=== PATIENT | male | born 1975 | race Two or more races ===

== ENCOUNTER 2021-04-20 19:53 | Inpatient (IN) | payer OTHER ==
[~2021-04-20] VITALS: Ht 162.6 cm; Wt 80.3 kg
--- NOTE | 2021-04-20 20:20 | NUR ---
PT BIBRA C/O WEAKNESS, DIARRHEA, AND MISSING DIALYSIS X1WEEK. PT AAOX4 BREATHING EVENLY AND UNLABORED. PT ATTACHED TO MONITOR AND POX. MD AT BEDSIDE. PT HAS LT UPPER EXTREMITY AV FISTUALA AND RT CHEST PORT. PT AMBULATORY, SKIN WARM AND DRY. PT GIVEN BLANKET AND CALL LIGHT WTIH REACH.
--- NOTE | 2021-04-20 20:34 | NUR ---
BLOOD SENT TO LAB
[2021-04-20 20:43] LABS: BASOPHILS % (AUTO) 0.5 % (0.0-2.0); EOSINOPHILS % (AUTO) 0.3 % (0.0-6.0); HEMATOCRIT 30 % (39-51); HEMOGLOBIN 9.8 g/dL (13.5-17.5); LYMPHOCYTES # (AUTO) 0.7 K/uL (0.8-4.8); MEAN CORPUSCULAR HGB CONC 33 g/dl (31.0-36.0); MEAN CORPUSCULAR VOLUME 94 fL (80-96); MONOCYTES # (AUTO) 0.5 K/uL (0.1-1.30); MONOCYTES % (AUTO) 7.8 % (2.0-12.0); NEUTROPHILS # (AUTO) 4.8 K/uL (1.8-8.9); NEUTROPHILS % (AUTO) 80.4 % (43.0-81.0); PLATELET COUNT (AUTO) 159 K/uL (150-450); RED BLOOD CELL COUNT(AUTO) 3.14 MIL/uL (4.5-6.0)
--- NOTE | 2021-04-20 20:51 | NUR ---
MRSA SWAB COLLECTED AND SENT TO LAB. PATIENT'S BELONGINGS LIST DONE.
[2021-04-20 20:54] LABS: CALCIUM, SERUM 6.3 mg/dL (8.5-10.1); CARBON DIOXIDE 34 mmol/L (21-32); CHLORIDE 90 mmol/L (98-107); GLUCOSE 191 mg/dL (74-106); SODIUM SERUM 133 mmol/L (136-145); UREA NITROGEN, BLOOD 66 mg/dL (7-18)
[2021-04-20 20:56] LABS: CREATININE 10.6 mg/dL (0.6-1.3); POTASSIUM 5.9 mmol/L (3.5-5.1)
--- NOTE | 2021-04-20 20:58 | NUR ---
COVID SWAB SENT TO LAB
[2021-04-20 21:00] LABS: ALANINE AMINOTRANSFERASE 25 U/L (12-78); ALBUMIN 3.2 g/dL (3.4-5.0); ALKALINE PHOSPHATASE 144 U/L (46-116); ASPARTATE AMINOTRANSFERASE 29 U/L (15-37); BILIRUBIN,DIRECT 0.4 mg/dL (0.0-0.2); BILIRUBIN,TOTAL 0.9 mg/dL (0.2-1.0); TOTAL PROTEIN, SERUM 9.4 g/dL (6.4-8.2)
[2021-04-20] MEDS ORDERED: SODIUM POLYSTYRENE SULFONATE 15 G/60 ML BOTTLE PO ONE (21:00)
[2021-04-20] MEDS ORDERED: DEXTROSE 50%-WATER 50 ML DISP.SYRIN IV ONE (21:00)
[2021-04-20] MEDS ORDERED: INSULIN REGULAR, HUMAN 100 UNIT/ML 10 ML VIAL IV ONE (21:00)
[2021-04-20] MEDS ORDERED: ALBUTEROL FS 2.5 MG/3 ML VIAL.NEB NEB ONE (21:00)
--- NOTE | 2021-04-20 21:43 | NUR ---
TELE 304-1
[2021-04-20] MEDS ORDERED: ZOLPIDEM TARTRATE 5 MG TABLET PO PRN (22:00)
[2021-04-20] MEDS ORDERED: Z GUARD REMEDY 2 OZ OINT TP PRN (22:00)
[2021-04-20] MEDS ORDERED: ONDANSETRON HCL/PF 4 MG/2 ML VIAL IVP PRN (22:00)
[2021-04-20] MEDS ORDERED: DEXTROSE 50%-WATER 50 ML DISP.SYRIN IV PRN (22:00)
[2021-04-20] MEDS ORDERED: MAG HYDROX/AL HYDROX/SIMETH 30 ML UDC PO PRN (22:00)
[2021-04-20] MEDS ORDERED: MAGNESIUM HYDROXIDE 30 ML UDC PO PRN (22:00)
[2021-04-20] MEDS ORDERED: ACETAMINOPHEN 325 MG TABLET PO PRN (22:00)
--- NOTE | 2021-04-20 22:09 | NUR ---
report given to MARILEE Mckinnon for arsenio
[2021-04-20 22:30] VITALS: BP 157/91
--- NOTE | 2021-04-20 22:30 | NUR ---
LEAK PATCHER OPENING NOTES: RECEIVED PATIENT FROM ER VIA RBRONX ON STABLE CONDITION,NO COMPLAIN OF PAIN AND DISCOMFORT AT THIS TIME, PATIENT IS A/O X4 GENERALLY TURKMEN SPEAKING BUT UNDERSTAND MONGOLIAN, AMBULATORY ABLE TO TRANSFER FROM BED TO REST ROOM , REMIND PATIENT TO USE CALL LIGHTS FOR ASSISTANCE, PT WAS ORIENTED TO PLACE, PATIENT ON TELE MONITORING SR-76, ON RA SATURATING WELL AT 96 PERCENT. WITH STANDBY O2 DUE TO COMPLAIN OF DYSPNEA NO SOB WAS OBSERVED SKIN ASSESSMENT DONE PICTURE FOR REFERENCE BUT PATIENT REFUSED, INVENTORY DONE, WITH IV LINE AT RAC#20 AND A/V FISTULA AT RT CHEST WALL, DIALYSIS DAY MWF, PATIENT KEPT CLEAN AND DRY ALL NEEDS MET, WILL CONTINUE TO MONITOR,
[2021-04-21] VITALS: BP 163/90
[2021-04-21] MEDS: BLOOD SUGAR DIAGNOSTIC 1 EACH STRIP VI SCH ×5 (00:31→22:12)
--- NOTE | 2021-04-21 02:50 | NUR ---
RN NOTES: DURING ASESSMENT PATIENT WAS ASKED IF HE HAS ALLERGY ND REPLIED HE HAS ALLERGY TO PENICILLIN DOCUMENTED
[2021-04-21 04:17] VITALS: BP 166/95
[2021-04-21 05:52] LABS: BASOPHILS % (AUTO) 0.3 % (0.0-2.0); HEMATOCRIT 30 % (39-51); HEMOGLOBIN 9.8 g/dL (13.5-17.5); LYMPHOCYTES # (AUTO) 0.7 K/uL (0.8-4.8); LYMPHOCYTES % (AUTO) 12.7 % (20.0-44.0); MEAN CORPUSCULAR HGB CONC 33 g/dl (31.0-36.0); MEAN CORPUSCULAR VOLUME 95 fL (80-96); MONOCYTES # (AUTO) 0.5 K/uL (0.1-1.30); MONOCYTES % (AUTO) 9.8 % (2.0-12.0); NEUTROPHILS # (AUTO) 4.1 K/uL (1.8-8.9); NEUTROPHILS % (AUTO) 77.2 % (43.0-81.0); PLATELET COUNT (AUTO) 105 K/uL (150-450); RED BLOOD CELL COUNT(AUTO) 3.11 MIL/uL (4.5-6.0); WHITE BLOOD COUNT (AUTO) 5.3 K/uL (4.3-11.0)
[2021-04-21 06:33] LABS: CALCIUM, SERUM 6.4 mg/dL (8.5-10.1); MAGNESIUM 2.2 mg/dL (1.8-2.4); POTASSIUM 4.5 mmol/L (3.5-5.1)
[2021-04-21 06:46] LABS: CREATININE 11.3 mg/dL (0.6-1.3); PHOSPHORUS 8.5 mg/dL (2.5-4.9)
--- NOTE | 2021-04-21 07:15 | NUR ---
RN NOTES RECEIVED CRITICAL LABS FOR PATIENT PHOSPHORUS -8.5 AND CREATININE 11.[address] EMPERATRIZ MOSELEY AND ORDER PHOSLO 667 MG TID AND WILL NEED HD TODAY. NOTED AND CARRY OUT ENDORSE TO INCOMING NURSE
--- NOTE | 2021-04-21 07:25 | NUR ---
RN NOTES RECEIVED PATIENT IN BED, A/O X4, VERBALLY RESPONSIVE, CYMRAES SPEAKING, NOT IN ACUTE DISTRESS NOTED. A/V SHUNT ON RIGHT CHEST WALL INTACT, WITH RAC #20G SALINE LOCK. AMBULATORY WITH BRP. WILL CONTINUE TO MONITOR.
[2021-04-21] MEDS: *INSULIN REGULAR(HUMULIN R)HUM 100 UNIT/ML VIAL SQ PRN ×2 (07:36→22:10)
--- NOTE | 2021-04-21 07:47 | NUR ---
MS RN NOTES: RECEIVED PATIENT AWAKE IN BED ,BED IN LOW POSITION, CALL LIGHTS WITHIN REACH,NO COMPLAIN OF PAIN AND DISCOMFORT AT THIS TIME, PATIENT IS A/O VIETNAMESE SPEAKING AMBULATE TO BATHROOM NO ON RA SATURATING WELL, PATIENT KEPT CLEAN AND DRY ALL NEEDS MET, ENDORSE TO INCOMING SHIFT.
[2021-04-21] MEDS ORDERED: ALBU8.5H8 IH (07:49)
[2021-04-21] MEDS ORDERED: PANT40TA2 PO (07:50)
[2021-04-21] MEDS ORDERED: TRAZ-182 PO (07:50)
[2021-04-21] MEDS ORDERED: IBUP-1953 PO (07:50)
[2021-04-21] MEDS ORDERED: DIVA250T4 PO (07:50)
[2021-04-21] MEDS ORDERED: MAGN400O6 PO (07:50)
[2021-04-21] MEDS ORDERED: CHOL100062 PO (07:50)
[2021-04-21] MEDS ORDERED: ASPI-1169 PO (07:50)
[2021-04-21] MEDS ORDERED: SIMV10TA98 PO (07:50)
[2021-04-21] MEDS ORDERED: NA P133E RC (07:50)
[2021-04-21] MEDS ORDERED: BISA10SU11 RC (07:50)
[2021-04-21] MEDS ORDERED: RISP0.2515 PO (07:50)
[2021-04-21] MEDS ORDERED: DOCU-141 PO (07:50)
[2021-04-21] MEDS ORDERED: ONDA4TAB5 PO (07:50)
[2021-04-21] MEDS ORDERED: METO25TA20 PO (07:50)
[2021-04-21] MEDS ORDERED: DIVA500T2 PO (07:50)
[2021-04-21] MEDS ORDERED: METH750T3 PO (07:50)
[2021-04-21] MEDS ORDERED: CRAN425C6 PO (07:50)
[2021-04-21 08:00] VITALS: BP 165/100
[2021-04-21] MEDS ORDERED: [UNRECOGNIZED DRUG - REMARK] PO (08:22)
[2021-04-21] MEDS ORDERED: AMLO-213 PO (08:22)
[2021-04-21] MEDS ORDERED: SUCR500T PO (08:22)
[2021-04-21] MEDS ORDERED: LABE200T5 PO (08:22)
--- NOTE | 2021-04-21 09:00 | NUR ---
RN NOTES PATIENT SEEN BY DR. REDD TODAY.
[2021-04-21] MEDS: AMLODIPINE BESYLATE 10 MG TABLET PO SCH (09:04)
[2021-04-21] MEDS: CALCIUM ACETATE 667 MG CAP/TAB PO SCH ×3 (09:04→17:06)
[2021-04-21] MEDS: LABETALOL HCL (100MG) 100 MG TABLET PO SCH ×2 (09:05→17:09)
[2021-04-21] MEDS: INSULIN REGULAR, HUMAN 100 UNIT/ML 3 ML VIAL SQ PRN (11:54)
--- NOTE | 2021-04-21 11:58 | NUR ---
RN NOTES SPOKE W/ JOEY, DIALYSIS NURSE; PER JOEY, WILL DIALYZE PATIENT LATER IN THE AFTERNOON.
[2021-04-21 12:00] VITALS: BP 138/81
--- NOTE | 2021-04-21 12:22 | NUR ---
RN NOTES PATIENT SIGNED CONSENT FORM FOR HEMODIALYSIS; FORM PLACED IN PATIENT'S CHART.
[2021-04-21] MEDS ORDERED: CALC667C6 PO (12:32)
[2021-04-21] MEDS ORDERED: BUME2TAB7 PO (12:32)
[2021-04-21] MEDS ORDERED: SEVE800T8 PO (12:32)
--- NOTE | 2021-04-21 14:11 | NUR ---
RN NOTES JOEY, HD NURSE, CURRENTLY AT BEDSIDE FOR HD.
[2021-04-21 16:00] VITALS: BP 157/95
--- NOTE | 2021-04-21 18:43 | NUR ---
RN NOTES PATIENT S/P HEMODIALYSIS TODAY, 4L OUTPUT NOTED. AT BEDSIDE SITTING DOWN, NOT IN ACUTE DISTRESS, WATCHING TV. BREATHING EVEN AND UNLABORED, TOLERATING ROOM AIR. NO COMPLAINT OF PAIN. HD ACCESS SITE W/ DRESSING C/D/I. DUE MEDS GIVEN TODAY. PATIENT IS AMBULATORY W/ STEADY GAIT. SEEN TODAY W/ DR. DEMPSEY AND AWARE OF HD. SAFETY MEASURES MAINTAINED. WILL ENDORSE TO SECURITY DISPATCHER RN FOR THEO.
--- NOTE | 2021-04-21 19:10 | NUR ---
MS RN OPENING NOTES: RECEIVED PATIENT IN BED, ASLEEP, EASILY AROUSABLE. NO S/S OF DISTRESS NOTED. NO COMPLAIN OF PAIN. CALL LIGHT WITHIN REACH. BED IN LOWEST AND LOCKED POSITION. WITH LEFT ARM AV SHUNT, WITH BRUIT, SIGN FOR NO BP, AND NO BLOOD DRAW ON THE LEFT ARM PLACED ON THE WALL.
[2021-04-21 20:00] VITALS: BP 128/76
[2021-04-22 06:47] LABS: BASOPHILS # (AUTO) 0.1 K/uL (0.0-0.2); BASOPHILS % (AUTO) 1.2 % (0.0-2.0); EOSINOPHILS % (AUTO) 1.6 % (0.0-6.0); HEMATOCRIT 30 % (39-51); LYMPHOCYTES # (AUTO) 0.9 K/uL (0.8-4.8); LYMPHOCYTES % (AUTO) 18.7 % (20.0-44.0); MEAN CORPUSCULAR HGB CONC 33 g/dl (31.0-36.0); MEAN CORPUSCULAR VOLUME 95 fL (80-96); MONOCYTES # (AUTO) 0.6 K/uL (0.1-1.30); MONOCYTES % (AUTO) 13.3 % (2.0-12.0); NEUTROPHILS # (AUTO) 3.1 K/uL (1.8-8.9); NEUTROPHILS % (AUTO) 65.2 % (43.0-81.0); RED BLOOD CELL COUNT(AUTO) 3.18 MIL/uL (4.5-6.0); WHITE BLOOD COUNT (AUTO) 4.7 K/uL (4.3-11.0)
[2021-04-22] MEDS: BLOOD SUGAR DIAGNOSTIC 1 EACH STRIP VI SCH ×4 (06:53→22:00)
--- NOTE | 2021-04-22 06:53 | NUR ---
BLOOD YOKCD=[id number], NO INSULIN COVERAGE NEEDED.
[2021-04-22 07:30] LABS: CALCIUM, SERUM 7.7 mg/dL (8.5-10.1); MAGNESIUM 2.2 mg/dL (1.8-2.4); PHOSPHORUS 7.4 mg/dL (2.5-4.9); POTASSIUM 4.3 mmol/L (3.5-5.1)
[2021-04-22 07:31] LABS: CREATININE 8.1 mg/dL (0.6-1.3)
[2021-04-22 08:00] VITALS: BP 132/74
--- NOTE | 2021-04-22 08:00 | NUR ---
RECEIVED PT. IN AM,ALERT AND ORIENTED X4,COMPLIANT WITH MEDS.
[2021-04-22] MEDS: LABETALOL HCL (100MG) 100 MG TABLET PO SCH ×2 (09:48→17:00)
[2021-04-22] MEDS: AMLODIPINE BESYLATE 10 MG TABLET PO SCH (09:48)
[2021-04-22] MEDS: CALCIUM ACETATE 667 MG CAP/TAB PO SCH ×3 (09:48→18:25)
[2021-04-22 10:18] LABS: EOSINOPHILS % (MANUAL) 1 % (0-4); LYMPHOCYTES % (MANUAL) 22 % (16-48); MONOCYTES % (MANUAL) 10 % (0-11.0); NEUTROPHILS % (MANUAL) 67 (42-76)
[2021-04-22 11:26] LABS: PLATELET COUNT (AUTO) 158 K/uL (150-450)
[2021-04-22] MEDS: *INSULIN REGULAR(HUMULIN R)HUM 100 UNIT/ML VIAL SQ PRN ×2 (13:41→18:29)
[2021-04-22 16:00] VITALS: BP 109/63
--- NOTE | 2021-04-22 16:43 | NUR ---
NO COMPLAINTS OFFERED.
--- NOTE | 2021-04-22 19:05 | NUR ---
MS RN OPENING NOTES: RECEIVED PATIENT SITTING IN THE CHAIR, A/O X4. NO S/S OF DISTRESS NOTED. CALL LIGHT WITHIN REACH. BED IN LOWEST AND LOCKED POSITION. NO COMPLAIN OF PAIN.
[2021-04-22 19:58] VITALS: BP 128/67
--- NOTE | 2021-04-22 22:22 | NUR ---
BLOOD SUGAR-[id number], NO INSULIN COVERAGE NEEDED.
--- NOTE | 2021-04-23 05:51 | NUR ---
MS RN CLOSING NOTES: PATIENT RESTING IN BED, AWAKE, A/O X4. NO S/S OF DISTRESS NOTED. CALL LIGHT WITHIN REACH. BED IN LOWEST AND LOCKED POSITION. HD STARTED.
[2021-04-23 06:19] LABS: BASOPHILS % (AUTO) 0.7 % (0.0-2.0); EOSINOPHILS % (AUTO) 2.7 % (0.0-6.0); HEMATOCRIT 29 % (39-51); HEMOGLOBIN 9.5 g/dL (13.5-17.5); LYMPHOCYTES % (AUTO) 19.7 % (20.0-44.0); MEAN CORPUSCULAR HGB CONC 33 g/dl (31.0-36.0); MEAN CORPUSCULAR VOLUME 96 fL (80-96); MONOCYTES # (AUTO) 0.7 K/uL (0.1-1.30); MONOCYTES % (AUTO) 14.5 % (2.0-12.0); NEUTROPHILS # (AUTO) 3.1 K/uL (1.8-8.9); NEUTROPHILS % (AUTO) 62.4 % (43.0-81.0); RED BLOOD CELL COUNT(AUTO) 3.02 MIL/uL (4.5-6.0)
[2021-04-23] MEDS: BLOOD SUGAR DIAGNOSTIC 1 EACH STRIP VI SCH ×3 (06:44→17:23)
--- NOTE | 2021-04-23 06:44 | NUR ---
BLOOD WRBOI=[id number], NO INSULIN COVERAGE NEEDED.
[2021-04-23 07:04] LABS: MAGNESIUM 2.3 mg/dL (1.8-2.4); POTASSIUM 4.4 mmol/L (3.5-5.1)
--- NOTE | 2021-04-23 07:30 | NUR ---
MS RN OPENING NOTES RECEIVED PATIENT RESTING ON BED AND A/0 X4. ON ROOM AIR TOLERATING WELL. NO SOB NOTED. NOT IN DISTRESS. ON ONGOING HEMODIALYSIS. WITH NO COMPLAINTS OF PAIN AT THIS TIME. WITH IV ACCESS AT RIGHT AC G20, SALINE LOCKED, PATENT AND INTACT. WITH RIGHT CHEST PERMACATH FOR HD. SAFETY MEASURES IN PLACE. CALL LIGHT WITHIN REACH. BED ON LOWEST AND LOCKED POSITION AND SIDE RAILS UP X2. WILL CONTINUE TO MONITOR.
[2021-04-23 07:34] LABS: CREATININE 9.8 mg/dL (0.6-1.3)
[2021-04-23 07:35] LABS: PHOSPHORUS 8.8 mg/dL (2.5-4.9)
[2021-04-23 08:00] VITALS: BP 180/90
[2021-04-23 08:55] LABS: PLATELET COUNT (AUTO) 145 K/uL (150-450)
[2021-04-23] MEDS: CALCIUM ACETATE 667 MG CAP/TAB PO SCH ×3 (09:04→16:45)
[2021-04-23] MEDS: AMLODIPINE BESYLATE 10 MG TABLET PO SCH (09:04)
[2021-04-23 09:35] LABS: BAND % (MANUAL) 1 % (0.0-5.0); EOSINOPHILS % (MANUAL) 3 % (0-4); LYMPHOCYTES % (MANUAL) 16 % (16-48); MONOCYTES % (MANUAL) 12 % (0-11.0); NEUTROPHILS % (MANUAL) 68 (42-76)
[2021-04-23] MEDS: LABETALOL HCL (100MG) 100 MG TABLET PO SCH ×2 (09:53→16:45)
[2021-04-23] MEDS: INSULIN REGULAR, HUMAN 100 UNIT/ML 3 ML VIAL SQ PRN ×2 (11:46→17:19)
[2021-04-23] MEDS ORDERED: hydrALAZINE HCL IV 20 MG VIAL IV PRN (13:30)
[2021-04-23 16:00] VITALS: BP 129/70
[2021-04-23 16:45] VITALS: BP 129/70
--- NOTE | 2021-04-23 18:20 | NUR ---
MS STRIP PICKER NOTES PATIENT IS FOR DISCHARGE PER DOCTOR PAOLO'S ORDER. FOR DISCHARGE TO HOME. DISCHARGE INSTRUCTION AND EDUCATION PROVIDED TO PATIENT AND EXPLAINED MEDICATIONS AND PRESCRIPTIONS. PATIENT VERBALIZED UNDERSTANDING. DISCHARGE FORM AND BELONGINGS LIST FORM SIGNED BY PATIENT. ALL BELONGINGS ACCOUNTED FOR. NAME WRIST BAND AND IV LINES ARE REMOVED. ASSISTED PATIENT TO THE LOBBY VIA WHEELCHAIR IN STABLE CONDITION. PATIENT WAS PICKED UP BY HIS SISTER AND LEFT VIA PRIVATE CAR. CHARGE NURSE AND MD ARE AWARE OF THE DISCHARGE.
== END 2021-04-23 18:30 | disposition home or self-care (01) | DRG 194 ==
LOC: ER 19:55 → TELE 21:45 → MED 04-21 12:59
PROVIDERS: ADMIT Nurse Practitioner Acute Care; ATTEND Nurse Practitioner Acute Care
PROC: 5A1D70Z Performance of Urinary Filtration, Intermittent, Less than 6 Hours Per Day (ICD-10-PCS; principal; 2021-04-21)
DX: I13.2 Hypertensive heart and chronic kidney disease with heart failure and with stage 5 chronic kidney disease, or end stage renal disease (principal); J96.01 Acute respiratory failure with hypoxia; E83.39 Other disorders of phosphorus metabolism; D63.1 Anemia in chronic kidney disease; E83.51 Hypocalcemia; I27.21 Secondary pulmonary arterial hypertension; N18.6 End stage renal disease; I50.33 Acute on chronic diastolic (congestive) heart failure; Z20.822 Contact with and (suspected) exposure to COVID-19; E11.22 Type 2 diabetes mellitus with diabetic chronic kidney disease; E87.5 Hyperkalemia; Z99.2 Dependence on renal dialysis; M89.9 Disorder of bone, unspecified
CPT/HCPCS: 36415; 71045-TC; 80048-TC; 80076-TC; 82728-TC; 82962-TC; 83540-TC; 83735-TC; 84100-TC; 84484-TC; 85025-TC; 85730-TC; 86706; 87081-TC; 87340; 90935-TC; 93307-TC; A6253; A6403; C9803; G0378; J1815; J7030

== ENCOUNTER 2021-05-05 23:07 | Inpatient (IN) | payer OTHER ==
[~2021-05-05] VITALS: Ht 162.6 cm; Wt 83.9 kg
[~2021-05-05 23:07] MED LIST: AMLO-213 PO; BUME2TAB7 PO; CALC667C6 PO; LABE200T5 PO; SEVE800T8 PO; [UNRECOGNIZED DRUG - REMARK] PO
--- NOTE | 2021-05-05 23:15 | NUR ---
bibs c/o fatigue, weakness, pain in legs. "i had diarrhea yesterday, but the sports intern gave me a pill" Dialysis MWF, not dialyzed today d/t. PT A/OX4. TOLERATING R/A WELL. FISTULA NOTED TO LFA AND HD CATH TO RCW; PATENT AND INTACT
--- NOTE | 2021-05-05 23:55 | NUR ---
INITIATED RAC #20G S/L; PATENT AND INTACT
--- NOTE | 2021-05-06 00:05 | NUR ---
ASSISTANT CENTER MANAGER AT PT'S BEDSIDE
[2021-05-06 00:24] LABS: BASOPHILS % (AUTO) 0.6 % (0.0-2.0); HEMATOCRIT 30 % (39-51); HEMOGLOBIN 10.1 g/dL (13.5-17.5); LYMPHOCYTES # (AUTO) 1.2 K/uL (0.8-4.8); LYMPHOCYTES % (AUTO) 17.9 % (20.0-44.0); MEAN CORPUSCULAR HGB CONC 34 g/dl (31.0-36.0); MEAN CORPUSCULAR VOLUME 95 fL (80-96); MONOCYTES # (AUTO) 0.6 K/uL (0.1-1.30); MONOCYTES % (AUTO) 8.2 % (2.0-12.0); NEUTROPHILS # (AUTO) 4.9 K/uL (1.8-8.9); NEUTROPHILS % (AUTO) 71.3 % (43.0-81.0); RED BLOOD CELL COUNT(AUTO) 3.14 MIL/uL (4.5-6.0); WHITE BLOOD COUNT (AUTO) 6.8 K/uL (4.3-11.0)
[2021-05-06 00:36] LABS: MAGNESIUM 2.3 mg/dL (1.8-2.4)
[2021-05-06 00:56] LABS: PLATELET COUNT (AUTO) 118 K/uL (150-450)
[2021-05-06 01:00] LABS: PHOSPHORUS 8.4 mg/dL (2.5-4.9)
--- NOTE | 2021-05-06 01:02 | NUR ---
CRITICAL PHOSPHORUS 8.4
[2021-05-06] MEDS ORDERED: HYDROCODONE/APAP 5/325MG TABLET ONE (01:29)
[2021-05-06] MEDS ORDERED: HYDROCODONE/APAP 5/325MG TABLET PO ONE (01:30)
[2021-05-06 01:46] LABS: CALCIUM, SERUM 6.5 mg/dL (8.5-10.1); POTASSIUM 5.9 mmol/L (3.5-5.1)
[2021-05-06 01:52] LABS: ALBUMIN 3.2 g/dL (3.4-5.0); BILIRUBIN,DIRECT 0.3 mg/dL (0.0-0.2); BILIRUBIN,TOTAL 0.7 mg/dL (0.2-1.0); TOTAL PROTEIN, SERUM 9.4 g/dL (6.4-8.2)
[2021-05-06 01:59] LABS: CREATININE 12.7 mg/dL (0.6-1.3)
--- NOTE | 2021-05-06 02:25 | NUR ---
NURSING SUP CALLED FOR BED ASSIGNMENT
[2021-05-06] MEDS ORDERED: SODIUM POLYSTYRENE SULF. PWD 15 GM UDC PO ONE (02:30)
[2021-05-06] MEDS ORDERED: hydrALAZINE HCL IV 20 MG VIAL ONE ×2 (02:30→03:22)
[2021-05-06] MEDS ORDERED: SODIUM POLYSTYRENE SULFONATE 15 G/60 ML BOTTLE ONE (02:31)
--- NOTE | 2021-05-06 02:59 | NUR ---
MRSA SWAB COLLECTED AND SENT TO LAB. PATIENT'S BELONGINGS LIST DONE.
[2021-05-06] MEDS ORDERED: LABETALOL HCL (100MG) 100 MG TABLET PO ONE ×2 (03:00→05:30)
[2021-05-06] MEDS ORDERED: hydrALAZINE HCL IV 20 MG VIAL IV ONE ×3 (03:00→03:30)
[2021-05-06] MEDS ORDERED: ONDANSETRON HCL/PF 4 MG/2 ML VIAL ONE (03:24)
[2021-05-06] MEDS ORDERED: ONDANSETRON HCL/PF - ER 4 MG/2 ML VIAL IV ONE (03:30)
--- NOTE | 2021-05-06 03:36 | NUR ---
CALLED FOR ROOM ASSIGNMENT.
--- NOTE | 2021-05-06 03:39 | NUR ---
RECIEVED BED [id number]
--- NOTE | 2021-05-06 04:07 | NUR ---
REPORT GIVEN TO TEE
[2021-05-06 04:30] VITALS: BP 161/98
[2021-05-06] MEDS ORDERED: Z GUARD REMEDY 2 OZ OINT TP PRN (04:30)
[2021-05-06] MEDS ORDERED: ONDANSETRON HCL/PF 4 MG/2 ML VIAL IVP PRN (04:30)
--- NOTE | 2021-05-06 04:30 | NUR ---
TELE/PEN TESTER NOTES RECEIVED PT FROM Mick VIA JANEL TO [id number], ACCOMPANIED BY MANAGER AMBULATORY. DX: FLUID OVERLOAD. CC: FATIGUE, WEAKNESS, PAIN IN LEGS, DIARRHEA, NAUSEA. PT AWAKE, A/OX4, AMBULATORY WITH STEADY GAIT. NOTED IV SITE: R-AC #20G INTACT/PATENT/FLUSHES WELL. WITH HD CATH ON RCW. WITH L-FA AV SHUNT WITH PALPABLE BRUIT/THRILL. PT ON HD MWF. REPORTS HE MISSED DIALYSIS YESTERDAY D/T SYMPTOMS. PT IN NO ACUTE DISTRESS. SAFETY MEASURES IN PLACE, BED IN LOWEST LOCKED POSITION, S/R UPX2, CALL LIGHT WITHIN REACH. WILL CONT TO MONITOR.
[2021-05-06 04:54] VITALS: BP 161/98
--- NOTE | 2021-05-06 05:00 | NUR ---
RN NOTE PT WITH ORDER FOR LABETALOL 200MG FOR 0300. UNABLE TO OBTAIN FROM [facility] AT THIS TIME. BP 164/98. DNP JANICE MADE AWARE WITH ORDER TO RENEW AND GIVE LABETALOL 200MG PO X1. NOTED AND CARRIED OUT.
[2021-05-06 06:34] LABS: BASOPHILS % (AUTO) 0.6 % (0.0-2.0); EOSINOPHILS % (AUTO) 1.2 % (0.0-6.0); HEMATOCRIT 30 % (39-51); HEMOGLOBIN 10.1 g/dL (13.5-17.5); LYMPHOCYTES # (AUTO) 0.8 K/uL (0.8-4.8); LYMPHOCYTES % (AUTO) 11.4 % (20.0-44.0); MEAN CORPUSCULAR HGB CONC 34 g/dl (31.0-36.0); MEAN CORPUSCULAR VOLUME 96 fL (80-96); MONOCYTES # (AUTO) 0.6 K/uL (0.1-1.30); MONOCYTES % (AUTO) 8.1 % (2.0-12.0); NEUTROPHILS # (AUTO) 5.7 K/uL (1.8-8.9); NEUTROPHILS % (AUTO) 78.7 % (43.0-81.0); RED BLOOD CELL COUNT(AUTO) 3.12 MIL/uL (4.5-6.0); WHITE BLOOD COUNT (AUTO) 7.2 K/uL (4.3-11.0)
[2021-05-06] MEDS ORDERED: PANT40TA49 PO (06:41)
[2021-05-06] MEDS ORDERED: DOLU50TA PO (06:41)
[2021-05-06] MEDS ORDERED: LAMI100T4 PO (06:41)
[2021-05-06] MEDS ORDERED: ABAC300T2 PO (06:41)
--- NOTE | 2021-05-06 07:30 | NUR ---
BEAD PICKER OPENING NOTE RECEIVED PT AWAKE IN BED. A/O X4. PT IS FINNISH-SPEAKING. PT IS STABLE ON ROOM AIR WITH NO SOB OR S/S OF RESPIRATORY DISTRESS NOTED. PT IS ON EXTERNAL PECAN GATHERER READING SR AT 69BPM. PT HAS NO C/O PAIN OR DISCOMFORT AT THIS TIME. IV ACCESS IS IN RAC #20 SALINE-LOCKED, INTACT AND PATENT. PT NOTED WITH RCW HD CATH INTACT. SAFETY PRECAUTIONS MAINTAINED. BED IN LOWEST LOCKED POSITION, HOB ELEVATED, SIDE RAILS UP X2. CALL LIGHT AND TABLE WITHIN REACH. WILL CONTINUE TO MONITOR.
[2021-05-06 08:00] VITALS: BP 151/81
[2021-05-06] MEDS: CALCIUM ACETATE 667 MG CAP/TAB PO SCH ×3 (08:20→18:18)
[2021-05-06] MEDS: SEVELAMER CARBONATE 800 MG TABLET PO SCH ×3 (08:21→18:19)
[2021-05-06] MEDS: AMLODIPINE BESYLATE 10 MG TABLET PO SCH (08:22)
[2021-05-06] MEDS: BUMETANIDE (1 MG) 1 MG TABLET PO SCH ×2 (08:22→17:00)
[2021-05-06 09:09] LABS: CALCIUM, SERUM 6.8 mg/dL (8.5-10.1); CARBON DIOXIDE 25 mmol/L (21-32); CHLORIDE 92 mmol/L (98-107); GLUCOSE 168 mg/dL (74-106); POTASSIUM 5.6 mmol/L (3.5-5.1); SODIUM SERUM 135 mmol/L (136-145)
[2021-05-06 09:13] LABS: UREA NITROGEN, BLOOD 83 mg/dL (7-18)
[2021-05-06 09:37] LABS: ALANINE AMINOTRANSFERASE 25 U/L (12-78); ALBUMIN 3.4 g/dL (3.4-5.0); ALKALINE PHOSPHATASE 145 U/L (46-116); ASPARTATE AMINOTRANSFERASE 26 U/L (15-37); BILIRUBIN,TOTAL 0.8 mg/dL (0.2-1.0); MAGNESIUM 2.3 mg/dL (1.8-2.4); TOTAL PROTEIN, SERUM 9.6 g/dL (6.4-8.2)
[2021-05-06 09:38] LABS: PHOSPHORUS 8.5 mg/dL (2.5-4.9)
[2021-05-06 12:00] VITALS: BP 174/103
[2021-05-06 12:47] LABS: EOSINOPHILS % (MANUAL) 1 % (0-4); LYMPHOCYTES % (MANUAL) 12 % (16-48); MONOCYTES % (MANUAL) 9 % (0-11.0); NEUTROPHILS % (MANUAL) 78 (42-76)
[2021-05-06 12:50] LABS: PLATELET COUNT (AUTO) 99 K/uL (150-450)
[2021-05-06 16:00] VITALS: BP 164/89
--- NOTE | 2021-05-06 17:42 | NUR ---
RN NOTE WITHHELD BUMEX 4MG PO AT THIS TIME. PT IS UNDERGOING HD TX.
--- NOTE | 2021-05-06 17:50 | NUR ---
RN NOTE HD TX COMPLETED AT THIS TIME. 3L OUT. VSS. PT TOLERATED WELL WITH NO COMPLICATIONS NOTED. WILL CONTINUE TO MONITOR.
--- NOTE | 2021-05-06 18:41 | NUR ---
WELDER HELPER CLOSING NOTE PT AWAKE IN BED. A/O X4. PT IS ECUADOREAN-SPEAKING. PT IS STABLE ON ROOM AIR WITH NO SOB OR S/S OF RESPIRATORY DISTRESS NOTED. PT IS ON EXTERNAL SALES AGENT INSURANCE READING SR AT 89BPM. PT HAS NO C/O PAIN OR DISCOMFORT AT THIS TIME. IV ACCESS IS IN RAC #20 SALINE-LOCKED, INTACT AND PATENT. PT NOTED WITH RCW HD CATH INTACT AND LFA AV SHUNT INTACT. ALL NEEDS HAVE BEEN MET. SAFETY PRECAUTIONS MAINTAINED AT ALL TIMES. BED IN LOWEST LOCKED POSITION, HOB ELEVATED, SIDE RAILS UP X2. CALL LIGHT AND TABLE WITHIN REACH. WILL ENDORSE TO ONCOMING NURSE FOR THEO.
--- NOTE | 2021-05-06 19:33 | NUR ---
FERRIS WHEEL ATTENDANT NOTE PATIENT IN BED WITH EYES CLOSED, EASY TO AROUSE. A/OX4. NO S/S OF APPARENT DISTRESS. DENIES PAIN AT THIS TIME. TELE MONITOR READING NSR 87 BPM. NO FLUIDS RUNNING AT THIS TIME. SAFETY IN PLACE. WILL CONTINUE TO MONITOR.
[2021-05-06 20:00] VITALS: BP 160/91
--- NOTE | 2021-05-06 20:46 | NUR ---
MAT INSPECTOR NOTES PATIENT BP 160/91. IT WAS 164/98 POST DIALYSIS THAT WAS ENDORSED TO ME BY AM SHIFT NURSE. CALLED DOCTOR ANDONIAN, SHOE LINING FITTER DOCTOR AND PER DOCTOR JUST GIVE THE MORNING 0900 DOSES OF AMLODIPINE 10MG PO AND BUMEX 4MG PO. READ BACK TO DOCTOR. DOCTOR ACKNOWLEDGED. SPOKE TO CHARGE TO LET HER KNOW. RAPHAEL ENTRY LEVEL INSTALLATION TECHNICIAN SAID TO PUT IT IN A ONE TIME ORDER FOR IT IS FOR THE MORNING. WILL FOLLOW TROUGH ORDER.
[2021-05-06] MEDS ORDERED: AMLODIPINE BESYLATE 10 MG TABLET PO ONE (21:00)
[2021-05-06] MEDS ORDERED: BUMETANIDE (1 MG) 1 MG TABLET PO ONE (21:00)
--- NOTE | 2021-05-06 21:00 | NUR ---
LUMBER GRADER NOTE AMLODIPINE 10 MG PO AND BUMEX 4 MG PO GIVEN ONCE WILL CONT. TO MONITOR PATIENT.
[2021-05-07] VITALS: BP 140/68
--- NOTE | 2021-05-07 00:22 | NUR ---
OPHTHALMIC MEDICAL TECHNOLOGIST NOTE BP WENT DOWN TO 140/68. WILL CONT. TO MONITOR.
[2021-05-07] MEDS: ACETAMINOPHEN 325 MG TABLET PO PRN ×2 (03:39→23:44)
[2021-05-07 04:00] VITALS: BP 130/68
--- NOTE | 2021-05-07 06:48 | NUR ---
MARKET INTELLIGENCE CONSULTANT CLOSING PATIENT IN CHAIR. NO S/S OF APPARENT DISTRESS. PAIN MANAGED WITH MEDICATION. PATIENT TELE MONITOR BEEN READING NSR 79 BPM THE WHOLE SHIFT. ALL NEEDS ATTENDED. NO FLUIDS RUNNING AT THIS TIME. ALL NEEDS ATTENDED. ALL SCHED MEDS ADMINISTERED. NO SIGNIFICANT CHANGE BRETT LAST ENDORSEMENT. WILL ENDORSE CARE TO MORNING SHIFT RN.
[2021-05-07 07:02] LABS: BASOPHILS % (AUTO) 0.7 % (0.0-2.0); EOSINOPHILS % (AUTO) 1.6 % (0.0-6.0); HEMATOCRIT 29 % (39-51); HEMOGLOBIN 9.8 g/dL (13.5-17.5); LYMPHOCYTES % (AUTO) 16.9 % (20.0-44.0); MEAN CORPUSCULAR HGB CONC 33 g/dl (31.0-36.0); MEAN CORPUSCULAR VOLUME 97 fL (80-96); MONOCYTES # (AUTO) 0.6 K/uL (0.1-1.30); MONOCYTES % (AUTO) 10.2 % (2.0-12.0); NEUTROPHILS # (AUTO) 4.2 K/uL (1.8-8.9); NEUTROPHILS % (AUTO) 70.6 % (43.0-81.0); RED BLOOD CELL COUNT(AUTO) 3.05 MIL/uL (4.5-6.0)
[2021-05-07 07:22] LABS: CALCIUM, SERUM 7.6 mg/dL (8.5-10.1); MAGNESIUM 2.3 mg/dL (1.8-2.4); PHOSPHORUS 7.3 mg/dL (2.5-4.9); POTASSIUM 5.2 mmol/L (3.5-5.1)
[2021-05-07 07:25] LABS: CREATININE 9.2 mg/dL (0.6-1.3)
--- NOTE | 2021-05-07 07:28 | NUR ---
RN NOTES RECEIVED PATIENT IN BED, AWAKE, A/O X 4. ON ROOM AIR, NO SOB NOTED, NO ACUTE RESPIRATORY DISTRESS. NO C/O PAIN AT THIS TIME. ON TELE SR @79. WITH RAC #20G, PATENT AND INTACT. WITH RCW HD CATHETER, INTACT, WITH CLEAN AND DRY DRESSING. PATIENT AMBULATORY. SAFETY MEASURES IN PLACE. BED LOCKED AND ON LOWEST POSITION, SR UP, CALL LIGHT PLACED WITHIN EASY REACH. WILL CONTINUE TO MONITOR.
[2021-05-07 08:00] VITALS: BP 138/63
[2021-05-07 08:20] LABS: PLATELET COUNT (AUTO) 77 K/uL (150-450)
[2021-05-07] MEDS: CALCIUM ACETATE 667 MG CAP/TAB PO SCH ×3 (08:34→17:24)
[2021-05-07] MEDS: SEVELAMER CARBONATE 800 MG TABLET PO SCH ×3 (08:34→17:24)
[2021-05-07] MEDS: BUMETANIDE (1 MG) 1 MG TABLET PO SCH ×2 (08:35→17:24)
[2021-05-07] MEDS: AMLODIPINE BESYLATE 10 MG TABLET PO SCH (08:35)
--- NOTE | 2021-05-07 12:10 | NUR ---
RN NOTES HEMODIALYSIS JUST STARTED BY HD NURSE JOEY VIA RCW PERMA CATHETER. PRE HD V/S: BP 133/78, HR 79 AND R 18.
--- NOTE | 2021-05-07 15:19 | NUR ---
RN NOTES HEMODIALYSIS JUST FINISHED AND PT TOLERATED PROCEDURE WITH 3,000 ML OUTPUT. RCW PERMA CATHETER IN PLACE WITH DRESSING C/D/I. POST HD V/S: BP 126/77, HR 79, R 18 AND T 98.5F.. WILL CONTINUE TO MONITOR.
[2021-05-07 16:00] VITALS: BP 127/67
--- NOTE | 2021-05-07 18:39 | NUR ---
RN NOTES PATIENT ON BED, RESTING, A/O X4. ON ROOM AIR, BREATHING EVEN AND UNLABORED, NO SOB NOTED, NO ACUTE RESPIRATORY DISTRESS NOTED. HAD HD THIS AFTERNOON, REMOVED 3L OF FLUIDS. RCW PERMACATH INTACT WITH CLEAN AND DRY DRESSING, LFA AV SHUNT, (+) THRILLS AND BRUITS. IV ACCESS ON RAC G#20, PATENT AND INTACT. ALL DUE MEDS GIVEN, TOLERATED WELL, NO ASE. SAFETY MEASURES IN PLACE. BED LOCKED, ON LOWEST POSITION, SR UP X2, CALL LIGHT PLACED WITHIN EASY REACH. WILL ENDORSE TO NEXT SHIFT.
--- NOTE | 2021-05-07 19:40 | NUR ---
MS RN OPENING NOTES PATIENT WAS SEEN AWAKE RESTING IN BED. PATIENT'S A/O X4. PATIENT'S STABLE ON ROOM AIR. HAD HD THIS AFTERNOON & HAD REMOVED 3L OF FLUIDS. IV ACCESS NOTED ON RAC G#20, WHICH IS INTACT AND PATENT. RCW PERMACATH WITH A CLEAN AND DRY DRESSING INTACT. LFA AV SHUNT WITH (+) THRILLS AND BRUITS. PATIENT'S IN NO ACUTE DISTRESS AT THIS TIME. SAFETY MEASURES IN PLACE: BED LOCKED, SR UP X2, AND CALL LIGHT WITHIN REACH OF THE PATIENT. WILL CONTINUE TO MONITOR THE PATIENT.
[2021-05-08 00:37] VITALS: BP 138/75
--- NOTE | 2021-05-08 07:04 | NUR ---
MS RN CLOSING NOTES PATIENT WAS SEEN SLEEPING IN HIS ROOM. PATIENT'S A/O X4. PATIENT'S STABLE ON ROOM AIR. HAD HD ON 05/07/21 & HAD REMOVED 3L OF FLUIDS. SALINE LOCK NOTED ON RAC G#20, WHICH IS INTACT, PATENT, AND FLUSHING WELL. RCW PERMACATH WITH A CLEAN AND DRY DRESSING INTACT. LFA AV SHUNT WITH (+) THRILLS AND BRUITS. PATIENT'S IN NO ACUTE DISTRESS AT THIS TIME. SAFETY MEASURES IN PLACE: BED LOCKED, SR UP X2, AND CALL LIGHT WITHIN REACH OF THE PATIENT. WILL ENDORSE CARE TO THE DAY SHIFT NURSE.
[2021-05-08 07:22] LABS: CALCIUM, SERUM 8.1 mg/dL (8.5-10.1); CREATININE 6.9 mg/dL (0.6-1.3); MAGNESIUM 2.4 mg/dL (1.8-2.4); PHOSPHORUS 5.2 mg/dL (2.5-4.9); POTASSIUM 4.7 mmol/L (3.5-5.1)
--- NOTE | 2021-05-08 07:23 | NUR ---
MS RN OPENING NOTES RECEIVED PATIENT SITTING ON CHAIR BY BEDSIDE. A/O X3. ABLE TO MAKE NEEDS KNOWN, DENIES PAIN OR DISCOMFORTS AT THIS TIME. ON ROOM AIR, TOLERATING WELL, BREATHING EVEN AND UNLABORED. IV SL ON RAC G#20 INTACT AND PATENT. PERMA CATH ON RCW IN PLACE WITH DRESSING C/D/I. AV SHUNTS ON LFA WITH + THRILLS AND BRUITS, NO BLEEDING AT SITE NOTED. CALL LIGHT WITHIN REACH. WILL CONTINUE TO MONITOR PT ACCORDINGLY.
[2021-05-08 07:40] LABS: BASOPHILS % (AUTO) 0.8 % (0.0-2.0); EOSINOPHILS % (AUTO) 3.2 % (0.0-6.0); HEMATOCRIT 30 % (39-51); HEMOGLOBIN 9.9 g/dL (13.5-17.5); LYMPHOCYTES # (AUTO) 1.2 K/uL (0.8-4.8); LYMPHOCYTES % (AUTO) 20.7 % (20.0-44.0); MEAN CORPUSCULAR HGB CONC 33 g/dl (31.0-36.0); MEAN CORPUSCULAR VOLUME 97 fL (80-96); MONOCYTES # (AUTO) 0.7 K/uL (0.1-1.30); MONOCYTES % (AUTO) 12.7 % (2.0-12.0); NEUTROPHILS # (AUTO) 3.6 K/uL (1.8-8.9); NEUTROPHILS % (AUTO) 62.6 % (43.0-81.0); PLATELET COUNT (AUTO) 63 K/uL (150-450); WHITE BLOOD COUNT (AUTO) 5.8 K/uL (4.3-11.0)
[2021-05-08 08:00] VITALS: BP 140/73
[2021-05-08] MEDS: SEVELAMER CARBONATE 800 MG TABLET PO SCH ×3 (08:29→17:01)
[2021-05-08] MEDS: CALCIUM ACETATE 667 MG CAP/TAB PO SCH ×3 (08:29→17:01)
[2021-05-08] MEDS: AMLODIPINE BESYLATE 10 MG TABLET PO SCH (08:30)
[2021-05-08] MEDS: BUMETANIDE (1 MG) 1 MG TABLET PO SCH ×2 (08:30→17:01)
[2021-05-08 09:07] LABS: *BASOS 1 % (Not Estab.); *COMMENTS Note: (.); *EOS 2 % (Not Estab.); *EOS, ABSOLUTE 0.1 x10E3/uL (0.0-0.4); *HCT 27.4 % (37.5-51.0); *HGB 9.3 g/dL (13.0-17.7); *IMMATURE GRANULOCYTES 0 % (Not Estab.); *LYMPHOCYTES 17 % (Not Estab.); *LYMPHS, ABSOLUTE 0.9 x10E3/uL (0.7-3.1); *MCHC 33.9 g/dL (31.5-35.7); *MCV 94 fL (79-97); *MONOCYTES 8 % (Not Estab.); *MONOS, ABSOLUTE 0.4 x10E3/uL (0.1-0.9); *NEUTROPHILS 72 % (Not Estab.); *NEUTROPHILS, ABSOLUTE 3.8 x10E3/uL (1.4-7.0); *PLT 100 x10E3/uL (150-450); *RBC 2.91 x10E6/uL (4.14-5.80); *RDW 14.2 % (11.6-15.4)
[2021-05-08 12:07] LABS: *% CD 4 POS. LYMPH 20.8 % (30.8-58.5); *% CD 8 POS. LYMPH 58.3 % (12.0-35.5); *ABSOLUTE CD 4 HELPER 187 /uL (359-1519); *ABSOLUTE CD 8 SUPPRESSOR 525 /uL (109-897); *CD4/CD8 RATIO 0.36 (0.92-3.72)
[2021-05-08] MEDS ORDERED: METF-440 PO (15:48)
[2021-05-08 16:00] VITALS: BP 134/74
--- NOTE | 2021-05-08 18:12 | NUR ---
RN DISCHARGED NOTES PATIENT DISCHARGED HOME IN STABLE CONDITION. A/O X4. FRISIAN SPEAKING AND ABLE TO MAKE NEEDS KNOWN. V/S TAKEN, STABLE AND RECORDED. ALL BELONGINGS ACCOUNTED FOR AND SIGNED FORM, IV ACCESS ON RAC G#20 REMOVED WITH NO ACTIVE BLEEDING NOTED, DRY PRESSURE DRESSING APPLIED TO SITE. NAME ARMBAND REMOVED. RCW PERMCATH IN PLACE WITH CLEAN AND DRY DRESSING INTACT. LFA AV SHUNT WITH (+) THRILLS AND BRUITS NOTED. HEALTH TEACHINGS/DISCHARGED INSTRUCTIONS GIVEN TO PT AND VERBALIZED UNDERSTANDING. EXIT FOLDER HANDED TO PT. PT LEFT UNIT AT 1800 VIA WHEELCHAIR ACCOMPANIED BY BARB MCGINNIS TO THE LOBBY. PT WILL TAKE LYFT TAXI TO GO HOME. CHARGE NURSE AWARE OF DISCHARGE.
[2021-05-11 12:06] LABS: *HIV-1 RNA BY PCR 1750 copies/mL (.); *HIV-1 log10 RNA 3.243 (.)
== END 2021-05-08 18:00 | disposition home or self-care (01) | DRG 425 ==
LOC: ER 23:15 → TELE 05-06 03:40 → MED 05-07 08:53
PROVIDERS: ADMIT Nurse Practitioner Family; ATTEND Registered Nurse
DX: E87.70 Fluid overload, unspecified (principal); D69.6 Thrombocytopenia, unspecified; E44.1 Mild protein-calorie malnutrition; I12.0 Hypertensive chronic kidney disease with stage 5 chronic kidney disease or end stage renal disease; N18.6 End stage renal disease; D63.1 Anemia in chronic kidney disease; E83.39 Other disorders of phosphorus metabolism; E83.51 Hypocalcemia; E11.22 Type 2 diabetes mellitus with diabetic chronic kidney disease; Z99.2 Dependence on renal dialysis; E87.5 Hyperkalemia; Z20.822 Contact with and (suspected) exposure to COVID-19; Z88.0 Allergy status to penicillin; Z79.899 Other long term (current) drug therapy; M89.9 Disorder of bone, unspecified; E88.09 Other disorders of plasma-protein metabolism, not elsewhere classified
CPT/HCPCS: 36415; 71045-TC; 80048-TC; 80053-TC; 80061-TC; 80076-TC; 83735-TC; 84100-TC; 84484-TC; 85025-TC; 86360; 87081-TC; 87536; 90935-TC; 97116-TC; 97530-TC; C9803; G0378; J0360; J2405